=== PATIENT | female | born 1990 | race Caucasian/White ===

== ENCOUNTER 2016-11-05 07:33 | Day surgery (SDC) | payer OTHER ==
--- NOTE | 2016-10-31 13:46 | HISTORY AND PHYSICAL E ---
History and Physical NAME: MAGALI MANDEL : 1990 AGE: 26Y ADMITTED: 11/05/2016 ROOM: REASON FOR ADMISSION: This 26-year-old female presented regarding colon exam. MEDICATIONS: 1. MiraLax. 2. Loestrin control. REVIEW OF SYSTEMS: HEENT: Negative. CARDIAC: Negative. ENDOCRINE: Negative. GI: Constipation, abdominal pain, rectal bleeding. ONCOLOGY/HEMATOLOGY: Negative. NEUROLOGIC: Anxiety. FAMILY HISTORY: Father history unknown. Mom is alive, heart disease. PHYSICAL EXAMINATION: VITAL SIGNS: She is 26. Blood pressure is 110/60, pulse 80, respirations 18, temp is 98. HEENT: Normal. ABDOMEN: Soft. NEUROLOGIC: Exam negative. CONCLUSIONS: Again, the patient presented regarding colon exam. The patient presented for colonoscopy. Admit for colon exam 11/05/2016. PLAN: Colon exam. DICTATING PHYSICIAN: SD MEJIA M.D. [id number] PHY#: [id number] ID: [id number] JOB#: [id number] ACCT: [id number] cc:SD MEJIA M.D. >
[~2016-11-05 07:33] MED LIST: EPINEPHRINE INJ 1 MG/10 ML DISP.SYRIN ONE; FLUMAZENIL INJ 0.5 MG/5 ML VIAL ONE; GLUCAGON,HUMAN RECOMB 1 MG INJ ONE; GLYCOPYRROLATE INJ 0.4 MG/2 ML VIAL ONE; LIDOCAINE 2% JELLY 30 ML TUBE ONE; NALOXONE HCL INJ/PF 0.4 MG/1 ML SDV ONE; ONDANSETRON HCL INJ/PF 4 MG/2 ML SDV ONE
[2016-11-05] MEDS: MIDAZOLAM 2 MG/2 ML INJ ONE ×4 (08:07→08:27)
[2016-11-05] MEDS: FENTANYL CITRATE INJ/PF 100 MCG/2 ML AMPUL ONE ×4 (08:09→08:24)
[2016-11-05 09:32] VITALS: BP 103/59
[2016-11-05 10:21] LABS: ABSOLUTE EOSINOPHILS # (AUTO) 0.1 10^3/uL (0.0-0.6); ABSOLUTE LYMPHOCYTES (AUTO) 1.4 10^3/uL (0.5-4.7); ABSOLUTE MONOCYTES (AUTO) 0.4 10^3/uL (0.1-1.4); ABSOLUTE NEUT (AUTO) 5.1 10^3/uL (1.7-8.2); BASOPHILS % (AUTO) 0.4 % (0-2); EOSINOPHILS % (AUTO) 0.8 % (0-6); HEMATOCRIT 35.3 % (36.0-47.0); HEMOGLOBIN 12.1 g/dL (12.0-15.5); LYMPHOCYTES % (AUTO) 20.2 % (13-45); MEAN CORPUSCULAR HEMOGLOBIN 29.2 pg (27.0-33.4); MEAN CORPUSCULAR HGB CONC 34.2 g/dL (32.0-36.0); MEAN CORPUSCULAR VOLUME 86 fl (80-97); MONOCYTES % (AUTO) 5.3 % (3-13); RED BLOOD COUNT 4.13 10^6/uL (3.72-5.28); RED CELL DISTRIBUTION WIDTH 13.7 % (11.5-14.0); SEGMENTED NEUTROPHILS % (AUTO) 73.3 % (42-78); WHITE BLOOD COUNT 6.9 10^3/uL (4.0-10.5)
--- NOTE | 2016-11-05 10:39 | OPERATIVE REPORT E ---
Operative Report NAME: MAGALI MANDEL : 1990 AGE: 26Y DATE OF SURGERY: 11/05/2016 ROOM: PREOPERATIVE DIAGNOSES: 1. Rectal bleeding. 2. Abdominal pain. 3. Constipation. POSTOPERATIVE DIAGNOSES: 1. External hemorrhoids, mild. 2. Mild colitis rectosigmoid. 3. Redundant colon. PROCEDURE: Colonoscopy to the cecum. SURGEON: SD MEJIA M.D. TISSUE REMOVED OR ALTERED: Biopsy rectosigmoid area. ANESTHESIA: Versed 6, fentanyl 125. DESCRIPTION: Rectal exam: External hemorrhoids mild. Rectum: Very mild proctitis. Rectosigmoid: Mild colitis. Descending colon normal. Transverse colon redundant, normal. Ascending normal. Cecum normal. There was brown stool in the cecum. Scope withdrawn from cecum, ascending, transverse, descending, sigmoid all the way to the rectum. CONCLUSION: Redundant colon. External hemorrhoids. Mild colitis rectosigmoid colon. PLAN: Soft diet. Awaiting biopsy results. Consider Linzess. DICTATING PHYSICIAN: SD MEJIA M.D. [id number] PHY#: [id number] ID: [id number] JOB#: [id number] ACCT: [id number] cc:[facility] SD SANDOVAL M.D. >
[2016-11-05 11:00] LABS: ERYTHROCYTE SEDIMENTATION RATE 9 mm/hr (0-20)
--- NOTE | 2016-11-07 12:05 | DISCHARGE SUMMARY E ---
Discharge Summary NAME: MAGALI MANDEL : 1990 AGE: 26Y ADMITTED: 11/05/2016 DISCHARGED: 11/05/2016 FINAL DIAGNOSIS: External hemorrhoids, small mild rectosigmoid colitis, redundant colon. HISTORY: A 26-year-old female with rectal bleeding, abdominal pain, constipation. Colonoscopy was consistent with irritable bowel syndrome, redundant colon, mild colitis rectosigmoid, and external hemorrhoids. ALLERGIES: PENICILLIN AND SULFA. DISCHARGE PLAN: Full diet. Hold aspirin. Lab studies awaiting biopsy. Follow up office visit in the next few days. DICTATING PHYSICIAN: SD MEJIA M.D. [id number] PHY#: [id number] ID: [id number] JOB#: [id number] ACCT: [id number] cc:[facility] SD MEJIA M.D. >
== END 2016-11-05 10:10 | disposition home or self-care (01) ==
LOC: END 07:33
PROVIDERS: ATTEND Specialist
PROC: 0DBP8ZX Excision of Rectum, Via Natural or Artificial Opening Endoscopic, Diagnostic (ICD-10-PCS; principal; 2016-11-05 08:00)
DX: R10.9 Unspecified abdominal pain (principal); K64.4 Residual hemorrhoidal skin tags; K52.9 Noninfective gastroenteritis and colitis, unspecified; K62.89 Other specified diseases of anus and rectum; K62.5 Hemorrhage of anus and rectum; Z79.3 Long term (current) use of hormonal contraceptives; Z88.0 Allergy status to penicillin; Z88.2 Allergy status to sulfonamides; Z79.899 Other long term (current) drug therapy; Q43.8 Other specified congenital malformations of intestine
CPT/HCPCS: 45380; 36415; 85025; 85652; 86140; 88305 ×2; J2250; J3010; J1610; J2405; J0171; J2310; J3490